=== PATIENT | male | born 1990 | race Caucasian/White ===

== ENCOUNTER 2024-09-24 13:35 | Emergency (ER) | payer MEDICAID, SELFPAY ==
--- NOTE | ~2024-09-24 | XR_ITS ---
EXAMINATION: XR CHEST CLINICAL INFORMATION: hyperglycemia COMPARISON: None available. TECHNIQUE: 2 views of the chest were obtained. FINDINGS: Prominence of the interstitial markings. No consolidation, pleural effusion or pneumothorax. Poor inspiration. Cardiomediastinal silhouette is normal in size. Multilevel thoracic and upper lumbar stenosis. S-shaped curvature of the thoracolumbar spine. XR/XR chest 2V IMPRESSION: Consider mild interstitial lung edema versus acute small airway disease. Electronically signed by: Jeffrey Paul MD 09/24/2024 03:44 PM EST
--- NOTE | 2024-09-24 13:53 | ECG_ITS ---
Test Reason : hypoglycemia Blood Pressure : */* mmHG Vent. Rate : 101 BPM Atrial Rate : 101 BPM P-R Int : 152 ms QRS Dur : 88 ms QT Int : 334 ms P-R-T Axes : 37 22 24 degrees QTcB Int : 433 ms Sinus tachycardia Otherwise normal ECG No previous ECGs available Referred By: Nba Orozco Electronically Signed By: Pb Vyas
[2024-09-24 14:19] VITALS: BP 115/68; PULSE 104; RESP 18; TEMP 36.7; O2SAT 93; BMI 41.0
[2024-09-24 14:20] LABS: Glucose, Whole Blood 430 mg/dL (60-115)
--- NOTE | 2024-09-24 14:23 | ED.GENADULT ---
HPI - General Adult General Chief complaint: General Medical Stated complaint: Hyperglycemia Time Seen by Provider: 09/24/24 13:53 Source: patient Mode of arrival: EMS Limitations: no limitations History of Present Illness HPI narrative: 33-year-old male from a detox facility for alcohol abuse he states he is at [facility] for the past few days. Patient is on insulin and metformin states he has been admitted for his blood sugar in the past presents to the emergency department for elevated blood sugar. Patient denies chest pain cough fever nausea vomiting or diarrhea. He denies any recent alcohol use as he has been admitted to this for the past 2 days he does smoke cigarettes and intermittently will smoke marijuana. Related Data Allergies Allergy/AdvReac Type Severity Reaction Status Date / Time No Known Allergies Allergy Verified 09/24/24 14:21 Review of Systems Review of Systems: Review of systems: General: Patient denies any fever chills recent illness or falls Musculoskeletal: Denies back pain or body aches or other injuries HEENT: denies headache, runny nose, ear pain Respiratory: denies shortness of breath, cough Cardiovascular: no chest pain or palpitations : denies dysuria, frequency Abdomen: no nausea vomiting denies abdominal pain Extremities: no swelling, no pain Skin: no diaphoresis Yes all other systems are reviewed and are negative PMFSH Social History Social History Smoked in Last 30 Days: Yes Use of substances other than those prescribed or required for medical reasons: Yes Substance Use Type: Marijuana Advance Directives: No Advance Directives Information Provided: No Physical Exam ED Vital Signs: Vital Signs - 24 hr 09/24/24 14:19 Temperature 98.0 F Pulse Rate 104 H Respiratory Rate 18 Blood Pressure 115/68 Pulse Oximetry 93 Oxygen Delivery Method Room Air BMI result Body Mass Index 41.0 General: Well-appearing well-nourished in no signs of distress HEENT: Normocephalic atraumatic Neck: No signs of JVD, no masses no tenderness or lymphadenopathy Cardiovascular: Regular rate and rhythm Respiratory: Clear to auscultation bilaterally Abdomen: Soft nontender no masses rectal exam performed 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 Extremities: Normal pedal pulses no signs of edema Skin: Dry warm no rashes Back: No tenderness full ROM Course Course Course Narrative: Patient here for elevated blood sugar did improve with fluids patient looks well complete workup she is shows diabetic hyperglycemia patient was given some rapid acting insulin he is okay with the plan to go home. Medications Administered Discontinued Medications Generic Name Dose Route Start Last Admin Trade Name Duane PRN Reason Stop Dose Admin Sodium Chloride 1,000 mls @ 999 mls/hr 09/24/24 14:00 09/24/24 16:06 Ns IV 09/24/24 15:00 999 mls/hr .Q1H1M GIANNI Administration Insulin Human Lispro 12 unit 09/24/24 15:52 09/24/24 16:13 Insulin Lispro 100 Unit/Ml 3 Ml Vial SUBCUT 09/24/24 15:53 8 unit ONCE ONE Administration Medical Decision Making Medical Decision Making MDM Narrative: I will check labs give the patient fluids and reassess Differential Diagnosis Differential Diagnoses: The differential diagnosis associated with the presentation includes Diabetic hyperglycemia diabetic ketoacidosis dehydration electrolyte abnormality medication noncompliance Consult Healthcare Provider Management of the patient was discussed with: Hospitalist Lab Data MDM Lab Attestation statement: I reviewed the patient's lab results. 09/24/24 14:50 09/24/24 14:50 Labs: Lab Results 09/24/24 09/24/24 09/24/24 Range/Units 14:13 14:50 14:56 WBC 10.3 (4.8-10.8) X10*3/uL RBC 4.43 L (4.60-5.80) X10*6/uL Hgb 13.2 L (14.0-18.0) g/dl Hct 38.7 L (42.0-52.0) % MCV 87.4 (80.0-98.0) fL MCH 29.8 (27.0-33.0) pg MCHC 34.1 (31.0-36.0) g/dl RDW 12.5 (11.0-16.0) % Plt Count 293 (160-400) X10*3/uL MPV 9.2 L (9.4-12.4) fL Immature Gran % (Auto) 0.3 (0.0-0.4) % Neut % (Auto) 60.2 (45-73) % Lymph % (Auto) 27.3 (20-40) % [place] % (Auto) 6.1 (2-11) % Eos % (Auto) 5.6 H (0-4) % Baso % (Auto) 0.5 (0-2) % Lymph # (Auto) 2.8 (1.2-4.9) X10*3/uL [place] # (Auto) 0.6 (0.1-1.2) X10*3/uL Eos # (Auto) 0.6 H (0.0-0.4) X10*3/uL Baso # (Auto) 0.1 (0.0-0.2) X10*3/uL Abs Immat Gran (auto) 0.03 (0.00-0.03) X10*3/uL Absolute Neuts (auto) 6.2 (2.0-8.3) x10*3/uL Absolute Nucleated RBC 0.000 (0.0-0.012) X10*3/uL Nucleated RBC % (auto) 0.0 (0.0-0.2) /100WBC VBG pH 7.59 H (7.32-7.43) VBG pCO2 27 mmHg VBG pO2 50 mmHg VBG HCO3 26 (22-26) mmol/L VBG O2 Saturation 88.0 % VBG Base Excess 5.8 mmol/L Sodium 132 L (135-145) mmol/L Potassium 4.8 (3.3-5.1) mmol/L Chloride 99 (96-108) mmol/L Carbon Dioxide 22 (22-29) mmol/L Anion Gap 16 (12-20) BUN 13 (9-16) mg/dL Creatinine 1.12 (0.5-1.4) mg/dL Estim Creat Clear Calc 119.4 Estimated GFR > 60 POC Glucose 430 H* (60-115) mg/dL Random Glucose 420 H* (60-115) mg/dL Calcium 9.5 (8.4-10.2) mg/dL Total Bilirubin 0.3 (0.0-1.0) mg/dL Direct Bilirubin 0.1 (0.0-0.5) mg/dL AST 67 H (5-37) U/L ALT 68 H (0-40) U/L Alkaline Phosphatase 59 (39-117) U/L Total Protein 7.9 (6.5-8.0) g/dL Albumin 3.7 (3.5-5.0) g/dL Lipase 27 (8-78) U/L Beta-Hydroxybutyrate 0.11 (0.02-0.27) mmol/L Ethyl Alcohol < 10 mg/dL Influenza Type A (PCR) NEGATIVE (Negative) Influenza Type B (PCR) NEGATIVE (Negative) RSV RNA Qual (PCR) NEGATIVE (Negative) SARS-CoV-2 RNA (RT-PCR) NEGATIVE (Negative) 09/24/24 09/24/24 Range/Units 15:20 16:09 WBC (4.8-10.8) X10*3/uL RBC (4.60-5.80) X10*6/uL Hgb (14.0-18.0) g/dl Hct (42.0-52.0) % MCV (80.0-98.0) fL MCH (27.0-33.0) pg MCHC (31.0-36.0) g/dl RDW (11.0-16.0) % Plt Count (160-400) X10*3/uL MPV (9.4-12.4) fL Immature Gran % (Auto) (0.0-0.4) % Neut % (Auto) (45-73) % Lymph % (Auto) (20-40) % [place] % (Auto) (2-11) % Eos % (Auto) (0-4) % Baso % (Auto) (0-2) % Lymph # (Auto) (1.2-4.9) X10*3/uL [place] # (Auto) (0.1-1.2) X10*3/uL Eos # (Auto) (0.0-0.4) X10*3/uL Baso # (Auto) (0.0-0.2) X10*3/uL Abs Immat Gran (auto) (0.00-0.03) X10*3/uL Absolute Neuts (auto) (2.0-8.3) x10*3/uL Absolute Nucleated RBC (0.0-0.012) X10*3/uL Nucleated RBC % (auto) (0.0-0.2) /100WBC VBG pH 7.40 (7.32-7.43) VBG pCO2 56 mmHg VBG pO2 48 mmHg VBG HCO3 35 H (22-26) mmol/L VBG O2 Saturation 75.0 % VBG Base Excess 8.5 mmol/L Sodium (135-145) mmol/L Potassium (3.3-5.1) mmol/L Chloride (96-108) mmol/L Carbon Dioxide (22-29) mmol/L Anion Gap (12-20) BUN (9-16) mg/dL Creatinine (0.5-1.4) mg/dL Estim Creat Clear Calc Estimated GFR POC Glucose 321 H (60-115) mg/dL Random Glucose (60-115) mg/dL Calcium (8.4-10.2) mg/dL Total Bilirubin (0.0-1.0) mg/dL Direct Bilirubin (0.0-0.5) mg/dL AST (5-37) U/L ALT (0-40) U/L Alkaline Phosphatase (39-117) U/L Total Protein (6.5-8.0) g/dL Albumin (3.5-5.0) g/dL Lipase (8-78) U/L Beta-Hydroxybutyrate (0.02-0.27) mmol/L Ethyl Alcohol mg/dL Influenza Type A (PCR) (Negative) Influenza Type B (PCR) (Negative) RSV RNA Qual (PCR) (Negative) SARS-CoV-2 RNA (RT-PCR) (Negative) Independent Interpretation I performed an independent interpretation of an: EKG Interpretation: Rate 101 sinus tachycardia normal intervals no signs of ischemia no previous for comparison interpreted me Radiology Impression Discussion of test interpretation with radiology: I have reviewed the radiologist's reading. External Record Review External record reviewed: Inpatient record and Outpatient record Of note the patient has never been here before. Discharge Plan Discharge Clinical Impression: Controlled diabetes mellitus with hyperglycemia Patient Disposition: Home, Self-Care Instructions: Diabetic Hyperglycemia (ED), How to Check your Blood Sugar (ED), How to Give an Insulin Injection (ED) Additional Instructions: You have an elevated blood sugar which improved with fluids. Please remember to drink plenty of water. IF you have any other concerns please return to the ER Print Language: Iraqi
[2024-09-24 14:55] LABS: MANUAL DIFF FLAG NO
[2024-09-24 14:59] LABS: Basophils Absolute Auto 0.1 X10*3/uL (0.0-0.2); Basophils Percent Auto 0.5 % (0-2); Eosinophils Absolute Auto 0.6 X10*3/uL (0.0-0.4); Eosinophils Percent Auto 5.6 % (0-4); Hematocrit 38.7 % (42.0-52.0); Hemoglobin 13.2 g/dl (14.0-18.0); Imm Gran Abs Auto 0.03 X10*3/uL (0.00-0.03); Imm Gran Pct Auto 0.3 % (0.0-0.4); Lymphocytes Absolute Auto 2.8 X10*3/uL (1.2-4.9); Lymphocytes Percent Auto 27.3 % (20-40); Mean Corpuscular HGB Conc 34.1 g/dl (31.0-36.0); Mean Corpuscular Hemoglobin 29.8 pg (27.0-33.0); Mean Corpuscular Volume 87.4 fL (80.0-98.0); Mean Platelet Volume 9.2 fL (9.4-12.4); Monocytes Absolute Auto 0.6 X10*3/uL (0.1-1.2); Monocytes Percent Auto 6.1 % (2-11); Neutrophils Absolute Auto 6.2 x10*3/uL (2.0-8.3); Neutrophils Percent Auto 60.2 % (45-73); Platelet Count 293 X10*3/uL (160-400); Red Blood Count 4.43 X10*6/uL (4.60-5.80); Red Cell Distribution Width 12.5 % (11.0-16.0); White Blood Count 10.3 X10*3/uL (4.8-10.8)
[2024-09-24 15:01] LABS: Venous Blood Gas Refer to POC result
[2024-09-24 15:02] LABS: VBG Base Excess 5.8 mmol/L; VBG HCO3 26 mmol/L (22-26); VBG pCO2 27 mmHg; VBG pH 7.59 (7.32-7.43); VBG pO2 50 mmHg
[2024-09-24 15:25] LABS: Venous Blood Gas Refer to POC result
[2024-09-24 15:26] LABS: VBG Base Excess 8.5 mmol/L; VBG HCO3 35 mmol/L (22-26); VBG pCO2 56 mmHg; VBG pO2 48 mmHg
[2024-09-24 15:30] LABS: Ethanol < 10 mg/dL
[2024-09-24 15:39] LABS: Influenza A PCR NEGATIVE (Negative); Influenza B PCR NEGATIVE (Negative); Resp Syncy Virus RNA Qual PCR NEGATIVE (Negative); SARS COV2 PCR INHOUSE NEGATIVE (Negative)
[2024-09-24 15:40] LABS: Beta-Hydroxybutyrate 0.11 mmol/L (0.02-0.27)
[2024-09-24 15:51] LABS: Alanine Aminotransferase 68 U/L (0-40); Albumin Level 3.7 g/dL (3.5-5.0); Anion Gap 16 (12-20); Aspartate Amino Transferase 67 U/L (5-37); Bilirubin Direct 0.1 mg/dL (0.0-0.5); Bilirubin Total 0.3 mg/dL (0.0-1.0); Blood Urea Nitrogen 13 mg/dL (9-16); Calcium 9.5 mg/dL (8.4-10.2); Carbon Dioxide 22 mmol/L (22-29); Chloride 99 mmol/L (96-108); Creatinine Clr Calc Pharmacy 119.4; Estimated Glomerular Filt Rate > 60; Glucose Random 420 mg/dL (60-115); Lipase 27 U/L (8-78); Potassium 4.8 mmol/L (3.3-5.1); Sodium 132 mmol/L (135-145); Total Protein 7.9 g/dL (6.5-8.0)
[2024-09-24] MEDS: 0.9 % Sodium Chloride 1,000 ML 999 ML IV (16:06)
[2024-09-24 16:13] LABS: Glucose, Whole Blood 321 mg/dL (60-115)
[2024-09-24] MEDS: Insulin Lispro 100 UNIT/ML 3 ML VIAL 12 UNIT SUBCUT (16:13)
[2024-09-24 16:15] LABS: Alkaline Phosphatase 59 U/L (39-117)
[2024-09-24 19:27] VITALS: BP 131/79; PULSE 90; RESP 14; O2SAT 92
[2024-09-25 00:50] VITALS: BP 131/79; PULSE 90; RESP 14; TEMP 36.7; O2SAT 92
== END 2024-09-25 00:50 | disposition home or self-care (01) ==
PROVIDERS: Emergency Provider Student in an Organized Health Care Education/Training Program
DX: E11.65 Type 2 diabetes mellitus with hyperglycemia (principal); Z03.818 Encounter for observation for suspected exposure to other biological agents ruled out
CPT/HCPCS: 0241U; 36415; 71046; 80048; 80076; 80307; 82010; 82803; 82947; 83690; 85025; 93005; 96360; 99284; 99285

== ENCOUNTER → 2024-09-24 13:53 | Outpatient (BNV) | payer MEDICAID, SELFPAY | PROVIDERS: Emergency Provider Student in an Organized Health Care Education/Training Program; Visit Provider Internal Medicine Cardiovascular Disease | DX: R00.0 Tachycardia, unspecified (principal) | CPT/HCPCS: 93010 ==